=== PATIENT | female | born 1985 | race Hispanic/Latino ===

== ENCOUNTER 2020-08-25 21:30 | Emergency (ER) | payer SELFPAY ==
[~2020-08-25] VITALS: Ht 154.9 cm; Wt 74.3 kg
[~2020-08-25 21:30] MED LIST: NO HOME MEDS
[2020-08-25 22:05] LABS: HEMATOCRIT 37.5 % (37.0-47.0); HEMOGLOBIN 12.6 g/dl (12.0-16.0); IMMATURE GRANULOCYTES 0.1 % (0.0-5.0); MEAN CELL VOLUME 84.5 fL CALC (80.0-100.0); MEAN CORPUSCULAR HGB 28.4 pG CALC (26.0-32.0); MEAN CORPUSCULAR HGB CONC 33.6 g/dL CAL (32.0-36.0); NEUT# 3.22 thou/uL (2.00-7.15); RED BLOOD COUNT 4.44 mill/uL (4.20-5.60); RED CELL DISTRI WIDTH 12.7 % (11.5-15.5)
[2020-08-25 22:10] LABS: URINE BILIRUBIN - DIPSTICK NEGATIVE (NEGATIVE); URINE BLOOD DIPSTICK LARGE (NEGATIVE); URINE GLUCOSE - DIPSTICK NEGATIVE (NEGATIVE); URINE KETONE NEGATIVE (NEGATIVE); URINE LEUK ESTERASE NEGATIVE (NEGATIVE); URINE NITRITE - DIPSTICK NEGATIVE (Negative); URINE PROTEIN - DIPSTICK 100 mg/dL (NEG-TRACE); URINE SPECIFIC GRAVITY <=1.005; URINE UROBILINOGEN - DIPSTICK 0.2 E.U./dL (0.2)
[2020-08-25 22:12] LABS: URINE COLOR RED
[2020-08-25 22:20] LABS: ALBUMIN 4.6 g/dL (3.2-5.0); ALKALINE PHOSPHATASE 133 u/l (38-126); ANION GAP 14 (6-22 (CALC)); BUN 8 mg/dL (7-17); BUN/CREATININE RATIO 22 (12-20 (CALC)); CARBON DIOXIDE 21 mmol/l (22-30); CHLORIDE 106 mmol/l (95-108); CREATININE 0.4 mg/dL (0.5-1.0); GFR > 60 ML/MIN (>=60 (CALC)); GFR FOR AFR.AMER. > 60 ML/MIN (>=60 (CALC)); POTASSIUM 3.8 mmol/l (3.5-5.1); SGOT/AST 21 u/l (14-36); SODIUM 136 mmol/l (137-146)
[2020-08-25 22:22] LABS: URINE RBC >100 RBC/hpf (0-5)
[2020-08-25 22:24] LABS: BILIRUBIN, TOTAL 0.5 mg/dL (0.0-1.4)
[2020-08-25 22:54] LABS: TSH, 3RD GENERATION < 0.02 uIU/mL (0.47 - 4.68)
[2020-08-26 01:00] VITALS: BP 125/61
[2020-08-26] MEDS ORDERED: TRAMADOL HYDROC50 MG PO (01:10)
== END 2020-08-26 01:32 | disposition home or self-care (01) | DRG 779 ==
LOC: ED 21:30
PROVIDERS: Family Medicine
DX: O03.4 Incomplete spontaneous abortion without complication (principal)